=== PATIENT | female | born 1980 | race Caucasian/White ===

== ENCOUNTER 2024-10-08 23:00 | Emergency (ER) | payer OTHER ==
[2024-10-08 23:08] VITALS: TEMP 97.8; BMI 24.9
[2024-10-08 23:47] LABS: ABSOLUTE IMMATURE GRANULOCYTES 0.02 x10^3/uL (0.0-0.031); BASOPHILS # 0.03 x10^3/uL (0.01-0.08); EOSINOPHIL % 4.4 % (0.7-5.8); EOSINOPHILS # 0.34 x10^3/uL (0.04-0.36); HEMATOCRIT 40.6 % (34.1-44.9); HEMOGLOBIN 13.2 g/dL (11.2-15.7); MCHC 32.5 g/dl (32.2-35.5); MEAN CELL VOLUME 78.1 fl (79.4-94.8); MEAN PLT VOLUME 10.7 fl (9.4-12.3); MONOCYTE # 0.72 x10^3/uL (0.24-0.86); MONOCYTE % 9.4 % (4.7-12.5); PLATELET COUNT 305 x10^3/uL (182-369); RDW 13.3 % (12.2-17.1)
[2024-10-09 00:16] LABS: POTASSIUM 4.5 mmol/L (3.5-5.1)
[2024-10-09 00:18] LABS: BLOOD UREA NITROGEN 16.3 mg/dL (7-18); CALCIUM 9.4 mg/dL (8.5-10.1)
[2024-10-09 00:22] LABS: CREATININE 0.9 mg/dL (0.55-1.3)
[2024-10-09 00:23] LABS: BILIRUBIN,TOTAL 0.2 mg/dL (0.2-1)
[2024-10-09 01:04] VITALS: BP 143/93; PULSE 68; RESP 17
== END 2024-10-09 01:04 | disposition home or self-care (01) ==
LOC: JER 23:00
DX: R07.2 Precordial pain (principal)
CPT/HCPCS: 36415; 71046-TC-FY; 80053; 84484; 85025; 93005; 93010; 99285-25